=== PATIENT | female | born 1995 | race Caucasian/White ===

== ENCOUNTER 2016-10-07 11:41 | Observation (INO) | payer OTHER ==
[~2016-10-07] VITALS: Ht 167.6 cm; Wt 76.7 kg
[~2016-10-07 11:41] MED LIST: ADVAIR 100/501 DISK IH; ADVIL,NUPRIN,M200 MG PO; Advair HFA 115/21 IH; Albuterol 0.5% Inhal IH; BENADRYL ALLERG25 MG PO; CLARITIN10 MG PO; DULERA 200 MCG/13 GM IH; DUONEB 2.5-0.5 M3 ML AEROSOL; DuoNeb IH; FLONASE16 G1 BOTH NARES; Feosol PO; LEVAQUIN750 MG PO; LEVOCETIRIZINE D5 MG PO; MEDROL DOSEPAK4 MG PO; MEDROL32 MG PO; Motrin PO; PREDNISONE20 MG PO; PREDNISONE50 MG PO; PROAIR HFA8.5 GM IH; PROVENTIL,2.5 MG/3 M IH; PULMICORT FLE180 MCG IH; PULMICORT FLEX90 MCG IH; Percocet 5/325,Endoc PO; Prefera-OB Plus DHA PO; SINGULAIR10 MG PO; SYMBICORT60 INHALAT IH; Tylenol Extra Streng PO; VENTOLIN HFA18 GM IH; ZOFRAN ODT8 MG PO; ZYRTEC10 M3 PO; predniSONE PO
[2016-10-07 12:18] LABS: HEMATOCRIT 47.2 % (36.0-46.0); MCH 29.6 PG (29.0-34.0); MCHC 34.5 G/DL (30.0-36.0); MCV 85.8 FL (83-99); MEAN PLAT.VOLUME 10.7 uM^3 (9.5-12.4); PLATELET COUNT 387 K/uL (156-360); RBC DIS.WIDTH-CV 12.7 % (11.8-14.6); RBC DIS.WIDTH-SD 39.6 % (39-53); WHITE BLOOD COUNT 8.9 K/uL (4.1-10.2)
[2016-10-07 12:29] LABS: CHLORIDE 106 mEq/L (99-109); POTASSIUM 4.1 mEq/L (3.7-5.4); SODIUM 140 mEq/L (136-147)
[2016-10-07 12:31] LABS: GLUCOSE 95 mg/dL (70-99)
[2016-10-07 12:32] LABS: ANION GAP 14 MEQ/L (2-14)
[2016-10-07 12:35] LABS: GFR ESTIMATE (CALCULATED) > 59 mL/min/
[2016-10-07 12:36] LABS: UREA NITROGEN (BUN) 10 mg/dL (9-23)
[2016-10-07 13:24] LABS: D-DIMER ELISA 0.64 mg/L FEU (< 0.57)
[2016-10-07] MEDS ORDERED: PHENTERMINE HCL30 MG PO (15:49)
[2016-10-07 16:56] VITALS: BP 109/92
[2016-10-07 23:51] VITALS: BP 116/58
[2016-10-08 04:21] VITALS: BP 119/59
[2016-10-08 06:38] LABS: HEMATOCRIT 39.3 % (36.0-46.0); MCH 30.8 PG (29.0-34.0); MCHC 35.6 G/DL (30.0-36.0); MCV 86.4 FL (83-99); PLATELET COUNT 337 K/uL (156-360); RBC DIS.WIDTH-CV 12.9 % (11.8-14.6); RBC DIS.WIDTH-SD 40.2 % (39-53); RED BLOOD COUNT 4.55 M/uL (3.80-5.20); WHITE BLOOD COUNT 8.1 K/uL (4.1-10.2)
[2016-10-08 07:12] LABS: ANION GAP 9 MEQ/L (2-14); CHLORIDE 105 MEQ/L (99-109); GFR ESTIMATE (CALCULATED) > 59 mL/min/; GLUCOSE 107 mg/dL (70-99); POTASSIUM 4.5 MEQ/L (3.7-5.4); SAMPLE HEMOLYSIS CHECK 0; SAMPLE ICTERIC CHECK 0; SAMPLE LIPEMIA CHECK 0; SODIUM 138 MEQ/L (136-147); UREA NITROGEN (BUN) 14 mg/dL (9-23)
[2016-10-08 08:09] VITALS: BP 108/65
[2016-10-08 11:32] VITALS: BP 123/68
[2016-10-08 15:32] VITALS: BP 134/65
[2016-10-08] MEDS ORDERED: PREDNISONE10 MG PO (15:40)
[2016-10-08] MEDS ORDERED: AZITHROMYCIN250 MG1 PO (15:40)
== END 2016-10-08 16:23 | disposition home or self-care (01) ==
LOC: EME 11:41 → EDOF 15:50 → 5WEST 15:50 → EDOF 15:50 → 5WEST 16:46
PROVIDERS: Emergency Medicine; Physician Assistant Medical
DX: J45.901 Unspecified asthma with (acute) exacerbation (principal); J21.9 Acute bronchiolitis, unspecified; J20.9 Acute bronchitis, unspecified; F12.90 Cannabis use, unspecified, uncomplicated; F17.200 Nicotine dependence, unspecified, uncomplicated; J98.2 Interstitial emphysema
CPT/HCPCS: 71010; 71020; 71275; 80048; 85027; 85379; 94640; 94640 76; 99202; 99281; 99285; G0378; J1650; J2930; J3475; J7512

== ENCOUNTER 2016-11-10 17:22 | Emergency (ER) | payer OTHER ==
[~2016-11-10] VITALS: Ht 175.3 cm; Wt 79.0 kg
[~2016-11-10 17:22] MED LIST changes: +AZITHROMYCIN250 MG1 PO; +PHENTERMINE HCL30 MG PO; +PREDNISONE10 MG PO
[2016-11-10 17:37] LABS: HEMATOCRIT 43.4 % (36.0-46.0); MCH 30.7 PG (29.0-34.0); MCV 87.7 FL (83-99); MEAN PLAT.VOLUME 10.5 uM^3 (9.5-12.4); PLATELET COUNT 446 K/uL (156-360); RBC DIS.WIDTH-CV 13.4 % (11.8-14.6); RED BLOOD COUNT 4.95 M/uL (3.80-5.20); WHITE BLOOD COUNT 16.3 K/uL (4.1-10.2)
[2016-11-10 17:45] LABS: CHLORIDE 108 mEq/L (99-109); POTASSIUM 3.9 mEq/L (3.7-5.4); SODIUM 140 mEq/L (136-147)
[2016-11-10 17:47] LABS: GLUCOSE 172 mg/dL (70-99)
[2016-11-10 17:48] LABS: ANION GAP 13 MEQ/L (2-14)
[2016-11-10 17:50] LABS: GFR ESTIMATE (CALCULATED) > 59 mL/min/
[2016-11-10 17:51] LABS: UREA NITROGEN (BUN) 15 mg/dL (9-23)
[2016-11-10 17:59] LABS: QUANTITATIVE HCG < 4.0 MIU/ML
[2016-11-10 18:38] LABS: D-DIMER ELISA 0.74 mg/L FEU (< 0.57)
[2016-11-10 19:41] LABS: ADD MIUA? YES; BILIRUBIN NEGATIVE; BLOOD LARGE; COLOR YELLOW ((YELLOW)); GLUCOSE (STRIP) 150; KETONES NEGATIVE; LEUKOCYTES SMALL; NITRITE NEGATIVE; PROTEIN (STRIP) 30; SPECIFIC GRAVITY 1.015 (1.000-1.030); UROBILINOGEN 0.2 MG/DL (0.2-1.0)
[2016-11-10 19:50] LABS: AMPHETAMINE NEGATIVE (500 ng/mL); BARBITURATES NEGATIVE (200 ng/mL); BENZODIAZEPINES NEGATIVE (150 ng/mL); COCAINE NEGATIVE (150 ng/mL); INTERNAL CONTROLS VALID? YES; METHADONE NEGATIVE (200 ng/mL); METHAMPHETAMINE NEGATIVE (500 ng/mL); OPIATES (MORPHINE) NEGATIVE (100 ng/mL); OXYCODONE PRESUMPTIVE POSITIVE (100 ng/mL); PHENCYCLIDINE NEGATIVE (25 ng/mL); PROPOXYPHENE NEGATIVE (300 ng/mL); THC CANNABINOIDS NEGATIVE (50 ng/mL); TRICYCLIC ANTIDEPRESSANTS NEGATIVE (300 ng/mL)
[2016-11-10 19:57] LABS: BACTERIA NONE SEEN /HPF; EPITHELIAL CELLS 1+ /HPF; MUCUS TRACE /LPF; WHITE BLOOD CELLS 0-5 /HPF (0-5)
[2016-11-10] MEDS ORDERED: PREDNISONE20 MG PO (21:52)
[2016-11-10] MEDS ORDERED: PEPCID40 MG PO (21:52)
[2016-11-10] MEDS ORDERED: VENTOLIN HFA18 GM IH (21:52)
[2016-11-10 22:10] VITALS: BP 129/68
== END 2016-11-10 22:11 | disposition home or self-care (01) ==
LOC: EME 17:22
PROVIDERS: Emergency Medicine
DX: T78.40XA Allergy, unspecified, initial encounter (principal); J45.909 Unspecified asthma, uncomplicated; R06.2 Wheezing; R09.02 Hypoxemia; Z87.891 Personal history of nicotine dependence
CPT/HCPCS: 71020; 71275; 80048; 81003; 84702; 85027; 85379; 94640; 99202; 99281; 99285; J1100; J1200; J7030; J7644

== ENCOUNTER 2016-11-29 22:15 | Emergency (ER) | payer OTHER ==
[~2016-11-29] VITALS: Ht 167.6 cm; Wt 78.1 kg
[~2016-11-29 22:15] MED LIST changes: +PEPCID40 MG PO
[2016-11-29 22:34] LABS: HEMATOCRIT 44.1 % (36.0-46.0); MCH 30.2 PG (29.0-34.0); MCHC 34.7 G/DL (30.0-36.0); MCV 87.2 FL (83-99); MEAN PLAT.VOLUME 10.3 uM^3 (9.5-12.4); PLATELET COUNT 390 K/uL (156-360); RBC DIS.WIDTH-CV 13.2 % (11.8-14.6); RBC DIS.WIDTH-SD 41.1 % (39-53); RED BLOOD COUNT 5.06 M/uL (3.80-5.20); WHITE BLOOD COUNT 18.1 K/uL (4.1-10.2)
[2016-11-29 22:44] LABS: CHLORIDE 108 mEq/L (99-109); POTASSIUM 3.7 mEq/L (3.7-5.4); SODIUM 141 mEq/L (136-147)
[2016-11-29 22:46] LABS: GLUCOSE 102 mg/dL (70-99)
[2016-11-29 22:47] LABS: ANION GAP 13 MEQ/L (2-14)
[2016-11-29 22:48] LABS: TOTAL BILIRUBIN 0.4 mg/dL (0.0-1.0)
[2016-11-29 22:49] LABS: ALKALINE PHOSPHATASE 60 IU/L (3-129)
[2016-11-29 22:50] LABS: GFR ESTIMATE (CALCULATED) > 59 mL/min/
[2016-11-29 22:51] LABS: UREA NITROGEN (BUN) 9 mg/dL (9-23)
[2016-11-29 22:58] LABS: QUANTITATIVE HCG < 4.0 MIU/ML
[2016-11-29 23:36] LABS: BASOPHIL COUNT 0.1 K/uL (0-0.1); EOSINOPHIL (%) 11.8 % (0-5); EOSINOPHIL COUNT 2.1 K/uL (0-0.3); HEMATOLOGY COMMENT 1 SMEAR COMPATIBLE; IMMATURE GRANULOCYTE (%) 0.4 % (0.0-0.7); IMMATURE GRANULOCYTE COUNT 0.1 K/uL; INSTRUMENT ABS NEUTROPHIL CT 7.3 K/uL; LYMPHOCYTE COUNT 7.4 K/uL (1.0-2.8); MONOCYTE (%) 6.2 % (3-12); MONOCYTE COUNT 1.1 K/uL (0-0.8); NEUTROPHIL (%) 40.1 % (45-76); NEUTROPHIL COUNT 7.3 K/uL (1.8-6.4); PLAT.SUFFICIENCY ADEQUATE
[2016-11-30] MEDS ORDERED: EPIPEN ADU0.3 MG/0.3 IM (01:42)
[2016-11-30] MEDS ORDERED: PEPCID20 MG PO (01:42)
[2016-11-30] MEDS ORDERED: BENADRYL50 MG PO (01:42)
[2016-11-30] MEDS ORDERED: PREDNISONE20 MG PO (01:42)
[2016-11-30 01:57] VITALS: BP 107/62
== END 2016-11-30 02:02 | disposition home or self-care (01) ==
LOC: EME 22:15
PROVIDERS: Emergency Medicine
DX: J45.901 Unspecified asthma with (acute) exacerbation (principal)
CPT/HCPCS: 71010; 80053; 83880; 84702; 85025; 93005; 94640; 94644; 99281; 99285; J1200; J2930; J3475; J7030; S0028

== ENCOUNTER 2016-12-23 01:31 | Emergency (ER) | payer OTHER ==
[~2016-12-23] VITALS: Ht 167.6 cm; Wt 80.1 kg
[~2016-12-23 01:31] MED LIST changes: +BENADRYL50 MG PO; +EPIPEN ADU0.3 MG/0.3 IM; +PEPCID20 MG PO
[2016-12-23] MEDS ORDERED: PREDNISONE50 MG PO (04:04)
[2016-12-23 04:22] VITALS: BP 105/91
== END 2016-12-23 04:23 | disposition home or self-care (01) ==
LOC: EME 01:31
DX: J45.901 Unspecified asthma with (acute) exacerbation (principal); Z87.891 Personal history of nicotine dependence; Z88.6 Allergy status to analgesic agent
CPT/HCPCS: 94640; 94644; 99281; 99284; J7512

== ENCOUNTER 2016-12-23 10:43 | Emergency (ER) | payer OTHER ==
[~2016-12-23] VITALS: Ht 167.6 cm; Wt 79.6 kg
[2016-12-23 13:22] VITALS: BP 119/84
== END 2016-12-23 13:25 | disposition home or self-care (01) ==
LOC: EME 10:43
DX: J45.901 Unspecified asthma with (acute) exacerbation (principal); Z87.891 Personal history of nicotine dependence; Z88.6 Allergy status to analgesic agent
CPT/HCPCS: 94644; 99281; 99283; J1100; J3475

== ENCOUNTER 2017-08-15 02:31 | Emergency (ER) | payer OTHER ==
[~2017-08-15] VITALS: Ht 167.6 cm; Wt 79.3 kg
[2017-08-15 02:35] VITALS: BP 113/71
[2017-08-15] MEDS ORDERED: AUGMENTIN875 MG PO (03:19)
== END 2017-08-15 03:52 | disposition home or self-care (01) ==
LOC: EME 02:31
DX: H66.92 Otitis media, unspecified, left ear (principal)
CPT/HCPCS: 99281; 99283

== ENCOUNTER 2017-10-16 01:18 | Emergency (ER) | payer OTHER ==
[~2017-10-16] VITALS: Ht 167.6 cm; Wt 83.7 kg
[~2017-10-16 01:18] MED LIST changes: +AUGMENTIN875 MG PO
[2017-10-16] MEDS ORDERED: PREDNISONE20 MG PO (02:42)
[2017-10-16 03:00] VITALS: BP 133/81
== END 2017-10-16 03:26 | disposition home or self-care (01) ==
LOC: EME 01:18
DX: J45.901 Unspecified asthma with (acute) exacerbation (principal); F41.9 Anxiety disorder, unspecified; F17.200 Nicotine dependence, unspecified, uncomplicated; Z88.8 Allergy status to other drugs, medicaments and biological substances
CPT/HCPCS: 93005; 94640; 99281; 99284; J7512

== ENCOUNTER 2017-12-21 19:16 | Emergency (ER) | payer OTHER ==
[~2017-12-21] VITALS: Ht 167.6 cm; Wt 87.2 kg
[2017-12-21 20:10] LABS: APPEARANCE CLEAR ((CLEAR)); BILIRUBIN NEGATIVE; BLOOD NEGATIVE; COLOR YELLOW ((YELLOW)); GLUCOSE (STRIP) NEGATIVE; KETONES NEGATIVE; LEUKOCYTES NEGATIVE; NITRITE NEGATIVE; PROTEIN (STRIP) 30; SPECIFIC GRAVITY 1.026 (1.000-1.030); UCUL ADDED? NO; UROBILINOGEN 0.2 MG/DL (0.2-1.0)
[2017-12-21 20:17] LABS: HEMATOCRIT 39.2 % (36.0-46.0); MCH 31.4 PG (29.0-34.0); MCHC 35.7 G/DL (30.0-36.0); MCV 87.9 FL (83-99); PLATELET COUNT 306 K/uL (156-360); RBC DIS.WIDTH-CV 13.1 % (11.8-14.6); RBC DIS.WIDTH-SD 41.9 % (39-53); RED BLOOD COUNT 4.46 M/uL (3.80-5.20)
[2017-12-21 20:25] LABS: ALBUMIN 4.2 g/dL (3.2-4.8)
[2017-12-21 20:26] LABS: CHLORIDE 107 mEq/L (99-109); POTASSIUM 3.7 mEq/L (3.7-5.4); SODIUM 136 mEq/L (136-147)
[2017-12-21 20:28] LABS: GLUCOSE 96 mg/dL (70-99); TOTAL PROTEIN 6.8 g/dL (6.4-8.3)
[2017-12-21 20:30] LABS: TOTAL BILIRUBIN 0.5 mg/dL (0.0-1.0)
[2017-12-21 20:32] LABS: ALKALINE PHOSPHATASE 54 IU/L (3-129); CREATININE 0.8 mg/dL (0.6-1.3); GFR ESTIMATE (CALCULATED) > 59 mL/min/
[2017-12-21 20:33] LABS: UREA NITROGEN (BUN) 16 mg/dL (9-23)
[2017-12-21 20:34] LABS: AST (GOT) 28 IU/L (2-34)
[2017-12-21 20:35] LABS: ALT (GPT) 46 IU/L (3-49)
[2017-12-21 20:43] LABS: QUANTITATIVE HCG < 4.0 MIU/ML
[2017-12-22 00:01] VITALS: BP 126/72
[2017-12-22] MEDS ORDERED: BENTYL20 MG PO (07:00)
[2017-12-22] MEDS ORDERED: PREDNISONE10 MG PO (07:00)
[2017-12-22] MEDS ORDERED: NORCO 5/3251 TABLET PO (07:00)
== END 2017-12-22 00:02 | disposition home or self-care (01) ==
LOC: EME 19:16
PROVIDERS: Nurse Practitioner Family
DX: R10.30 Lower abdominal pain, unspecified (principal); N94.6 Dysmenorrhea, unspecified; J45.909 Unspecified asthma, uncomplicated; R11.0 Nausea; K76.0 Fatty (change of) liver, not elsewhere classified; K42.9 Umbilical hernia without obstruction or gangrene; F17.200 Nicotine dependence, unspecified, uncomplicated
CPT/HCPCS: 71046; 74177; 80053; 81003; 84702; 85027; 94640; 99281; 99284

== ENCOUNTER 2017-12-22 04:39 | Emergency (ER) | payer OTHER ==
[~2017-12-22] VITALS: Ht 167.6 cm; Wt 88.0 kg
[2017-12-22 05:51] LABS: HEMATOCRIT 38.2 % (36.0-46.0); HEMOGLOBIN 13.5 G/DL (11.9-15.5); MCH 31.4 PG (29.0-34.0); MCHC 35.3 G/DL (30.0-36.0); MCV 88.8 FL (83-99); PLATELET COUNT 282 K/uL (156-360); RBC DIS.WIDTH-CV 13.1 % (11.8-14.6); RBC DIS.WIDTH-SD 42.5 % (39-53); WHITE BLOOD COUNT 9.6 K/uL (4.1-10.2)
[2017-12-22 05:59] LABS: ALBUMIN 3.9 g/dL (3.2-4.8); CHLORIDE 107 mEq/L (99-109); POTASSIUM 3.6 mEq/L (3.7-5.4); SODIUM 137 mEq/L (136-147)
[2017-12-22 06:01] LABS: GLUCOSE 91 mg/dL (70-99); TOTAL PROTEIN 6.4 g/dL (6.4-8.3)
[2017-12-22 06:05] LABS: ALKALINE PHOSPHATASE 59 IU/L (3-129); CREATININE 0.7 mg/dL (0.6-1.3); GFR ESTIMATE (CALCULATED) > 59 mL/min/
[2017-12-22 06:06] LABS: UREA NITROGEN (BUN) 17 mg/dL (9-23)
[2017-12-22 06:07] LABS: AST (GOT) 28 IU/L (2-34)
[2017-12-22 06:08] LABS: ALT (GPT) 42 IU/L (3-49)
[2017-12-22 06:18] LABS: TOTAL BILIRUBIN 0.3 mg/dL (0.0-1.0)
[2017-12-22 06:40] LABS: LIPASE 24 U/L (1.0-51.0)
[2017-12-22] MEDS ORDERED: PREDNISONE10 MG PO (07:00)
[2017-12-22] MEDS ORDERED: NORCO 5/3251 TABLET PO (07:00)
[2017-12-22] MEDS ORDERED: BENTYL20 MG PO (07:00)
[2017-12-22 08:01] VITALS: BP 107/58
== END 2017-12-22 08:14 | disposition home or self-care (01) ==
LOC: EME 04:39
PROVIDERS: Emergency Medicine
DX: R10.2 Pelvic and perineal pain (principal); J45.901 Unspecified asthma with (acute) exacerbation; F17.200 Nicotine dependence, unspecified, uncomplicated; Z79.51 Long term (current) use of inhaled steroids; Z90.49 Acquired absence of other specified parts of digestive tract; Z88.6 Allergy status to analgesic agent
CPT/HCPCS: 76856; 80053; 83690; 85027; 94640; 99281; 99284; J7512